=== PATIENT | male | born 1965 | race Caucasian/White ===

== ENCOUNTER 2022-12-02 09:17 | Outpatient (CLI) | payer BC, SELFPAY ==
[2022-12-02 13:57] LABS: Albumin* 4.4 g/dL (3.3-5.0); Chloride* 105 mmol/L (96-114); Sodium* 139 mmol/L (135-149)
[2022-12-02 13:58] LABS: Potassium* 4.5 mmol/L (3.6-5.1)
[2022-12-02 13:59] LABS: Cholesterol* 212 mg/dL (90-199)
[2022-12-02 14:00] LABS: Alanine Aminotransferase* 108 U/L (4-50); Alkaline Phosphatase* 62 U/L (40-150); Aspartate Amino Transferase* 82 U/L (12-35); Bilirubin Total* 2.1 mg/dL (0.1-1.5); Blood Urea Nitrogen* 12 mg/dL (7-30); Calcium* 9.1 mg/dL (8.4-10.6); Carbon Dioxide* 29 mmol/L (20-32); Creatinine* 0.8 mg/dL (0.5-1.5); Estimated Glomerular Filt Rate 105 ml/min; Glucose* 94 mg/dL (60-115); Total Protein* 7.1 g/dL (6.0-8.3); Triglycerides* 135 mg/dL (40-149)
[2022-12-02 14:01] LABS: HDL Cholesterol* 59 mg/dL (>=40); LDL Cholesterol Calculated 126 mg/dL (<100)
[2022-12-02 14:28] LABS: PSA Screen* 2.64 ng/mL (0.10-4.00)
== END 2022-12-02 09:18 | disposition home or self-care (01) ==
PROVIDERS: PCP Physician Assistant Medical; Visit Provider Physician Assistant Medical
DX: Z00.00 Encounter for general adult medical examination without abnormal findings (principal); E78.5 Hyperlipidemia, unspecified; I10 Essential (primary) hypertension; Z12.5 Encounter for screening for malignant neoplasm of prostate; Z13.29 Encounter for screening for other suspected endocrine disorder
CPT/HCPCS: 80053; 80061; 84153; 84443

== ENCOUNTER 2024-01-26 08:19 | Outpatient (CLI) | payer BC, SELFPAY | END 2024-01-26 08:20 | disposition home or self-care (01) | LOC: NFLDREF 02-04 12:34 | PROVIDERS: PCP Physician Assistant Medical; Referring Provider Physician Assistant Medical; Visit Provider Physician Assistant Medical | DX: I10 Essential (primary) hypertension (principal); E78.5 Hyperlipidemia, unspecified; K76.0 Fatty (change of) liver, not elsewhere classified; Z12.5 Encounter for screening for malignant neoplasm of prostate | CPT/HCPCS: 80053; 80061; G0103 ==